=== PATIENT | female | born 1990 | race Caucasian/White ===

== ENCOUNTER 2018-10-24 09:22 | Emergency (ER) | payer SELFPAY ==
[2018-10-24 10:00] VITALS: BP 126/89
--- NOTE | 2018-10-24 10:15 | ER Report ---
History and Physical Time Seen By MD: 09:00 Hx. of Stated Complaint: cough, runny nose, fever HPI/ROS CHIEF COMPLAINT: Cough runny nose HISTORY OF PRESENT ILLNESS: 28-year-old female is child is diagnosed with influenza is concerned she also may have influenza scad a cough runny nose objective fevers general malaise no other additional complaints noted REVIEW OF SYSTEMS: Respiratory: Nonproductive cough no shortness of breath Cardiovascular: No chest pain, no palpitations. Gastrointestinal: No vomiting, no abdominal pain. Musculoskeletal: No back pain. Remainder of the 14 system rev: Yes Allergies: Coded Allergies: No Known Drug Allergies (Unverified , 10/24/18) Reviewed Nurses Notes: Yes Old Medical Records Reviewed: Yes Constitutional Vital Sign - Last 24 Hours 10/24/18 09:29 Temp 98.7 Pulse 78 Resp 20 B/P (MAP) 140/99 Pulse Ox 97 O2 Delivery Room Air Physical Exam General Appearance: The patient is alert, has no immediate need for airway protection and no current signs of toxicity. [ ] Eyes: Pupils equal and round no injection. Respiratory: Chest is non tender, lungs are clear to auscultation. Cardiac: regular rate and rhythm [ ] Gastrointestinal: Abdomen is soft and non tender, no masses, bowel sounds normal. Musculoskeletal: Neck: Neck is supple and non tender. Extremities have full range of motion and are non tender. Skin: No rashes or lesions. [ ] DIFFERENTIAL DIAGNOSIS: After history and physical exam differential diagnosis was considered for viral upper respiratory influenza Medical Decision Making Data Points Laboratory Hematology Test 10/24/18 09:29 Influenza Virus Type A (PCR) Negative (NEGATIVE) Influenza Virus Type B (PCR) Negative (NEGATIVE) Chemistry Test 10/24/18 09:29 Influenza Virus Type A (PCR) Negative (NEGATIVE) Influenza Virus Type B (PCR) Negative (NEGATIVE) ED Course/Re-evaluation ED Course 28-year-old otherwise healthy female comes in with vague nonspecific symptoms including a subjective fever nonproductive cough child has influenza she is negative diagnosis viral Decision to Disposition Date: Oct 24, 2018 Decision to Disposition Time: 10:14 Depart Departure Latest Vital Signs Vital Signs Date Time Temp Pulse Resp B/P (MAP) Pulse Ox O2 Delivery O2 Flow Rate FiO2 10/24/18 09:29 98.7 78 20 140/99 97 Room Air Impression: Primary Impression: Viral upper respiratory illness Condition: Stable Disposition: HOME OR SELF-CARE Referrals: CHRISTINA CH MD 5 Days Patient Instructions: Upper Respiratory Infection (DC) GERONIMO VÁZQUEZ MD Oct 24, 2018 10:15
== END 2018-10-24 10:23 | disposition home or self-care (01) ==
LOC: ER 09:47
DX: J06.9 Acute upper respiratory infection, unspecified (principal)
CPT/HCPCS: 87502; 99282

== ENCOUNTER 2019-04-22 23:54 | Observation (INO) | payer BC ==
[~2019-04-22] VITALS: Ht 154.9 cm; Wt 79.8 kg
[2019-04-23] VITALS (15 sets, daily range): BP systolic 107–140; BP diastolic 73–90
--- NOTE | 2019-04-23 00:13 | ER Report ---
History and Physical Time Seen By MD: 00:08 Hx. of Stated Complaint: PT REPORTS STABBING EPIGASTRIC PAIN THAT LASTED FOR 20 MINUTES AND RADIATED AROUND RIGHT SIDE TO SPINE. PT REPORTS DULL PAIN RIGHT NOW. VOMITING WITH THE PAIN. HPI/ROS CHIEF COMPLAINT: Abdominal pain HISTORY OF PRESENT ILLNESS: This is a 28-year-old female. She reports epigastric pain, sharp and stabbing, radiating around the right side into the back. Nausea and vomiting with the pain. Pain seeming to let up now. Happened a few hours after eating, had chicken and mashed potatoes. No pain right after eating. Has had similar pain in the past. Family history of gallbladder issues. No fevers or chills noted. No cough or shortness of breath, but when pain was severe would take her breath away. No problems with urination. Last menses normal a few weeks ago. No diarrhea, blood in stool or stool changes. Allergies: Coded Allergies: No Known Drug Allergies (Unverified , 04/23/19) Home Meds No Active Prescriptions or Reported Meds Reviewed Nurses Notes: Yes Constitutional Vital Sign - Last 24 Hours 04/23/19 04/23/19 04/23/19 04/23/19 00:01 00:06 00:30 00:39 Temp 98.6 Pulse 78 79 Resp 18 B/P (MAP) 148/101 (117) 148/101 142/107 (119) Pulse Ox 94 94 O2 Delivery Room Air 04/23/19 04/23/19 04/23/19 04/23/19 00:54 01:00 01:09 01:30 Pulse 83 B/P (MAP) 127/103 (111) 129/87 (101) Pulse Ox 94 95 04/23/19 04/23/19 04/23/19 04/23/19 01:39 01:54 01:56 01:59 Pulse 63 67 B/P (MAP) 134/84 (101) 129/89 (102) Pulse Ox 96 98 04/23/19 02:00 B/P (MAP) 143/93 (110) l Intake and Output 04/22/19 04/22/19 04/23/19 15:03 23:03 07:03 Intake Total 1000 ml Balance 1000 ml Physical Exam General Appearance: The patient is alert. Acute distress due to pain. Eyes: Pupils are equal, round. No pallor, injection or icterus. ENT: Mucous membranes are moist. Normal oral mucosa. Posterior oropharynx is normal. Neck: Supple and non tender. Respiratory: Lungs are clear to auscultation. Cardiovascular: Regular rate and rhythm. No murmurs, gallops or rubs. Normal capillary refill. Gastrointestinal: Abdomen is soft, tender in epigastric and ruq. Nondistended. Guarding, no rebound. Negative Blackburn's sign. No masses or organomegaly. Normal active bowel sounds. No costovertebral angle tenderness with percussion. Neurological: Alert and oriented x3. No focal neurologic deficit Skin: Warm and dry. No rashes. Musculoskeletal: Extremities are nontender. No tenderness in palpation of the back and spine. DIFFERENTIAL DIAGNOSIS: After history and physical exam, differential diagnosis was considered for epigastric pain including but not limited to biliary colic, cholecystitis, peptic ulcer disease, pancreatitis, and gastroenteritis. Medical Decision Making Data Points Result Diagram: 04/23/19 0114 04/23/19 0114 Laboratory Hematology Test 04/23/19 01:14 White Blood Count 10.9 k/uL (4.5-11.0) Red Blood Count 5.26 M/uL (4.17-5.56) Hemoglobin 16.0 g/dL (12.0-16.0) Hematocrit 46.0 % (34.0-47.0) Mean Corpuscular Volume 87.5 fL (80.0-96.0) Mean Corpuscular Hemoglobin 30.5 pg (26.0-33.0) Mean Corpuscular Hemoglobin Concent 34.9 g/dL (32.0-36.0) Red Cell Distribution Width 13.3 % (11.5-14.5) Platelet Count 235 K/uL (150-450) Mean Platelet Volume 8.7 fL (7.2-11.1) Neutrophils (%) (Auto) 68.5 % (39.4-72.5) Lymphocytes (%) (Auto) 23.1 % (17.6-49.6) Monocytes (%) (Auto) 5.1 % (4.1-12.4) Eosinophils (%) (Auto) 1.8 % (0.4-6.7) Basophils (%) (Auto) 1.5 % (0.3-1.4) H Nucleated RBC Relative Count (auto) 0.1 /100WBC Neutrophils # (Auto) 7.5 K/uL (2.0-7.4) H Lymphocytes # (Auto) 2.5 K/uL (1.3-3.6) Monocytes # (Auto) 0.6 K/uL (0.3-1.0) Eosinophils # (Auto) 0.2 K/uL (0.0-0.5) Basophils # (Auto) 0.2 K/uL (0.0-0.1) H Nucleated RBC Absolute Count (auto) 0.02 K/uL Chemistry Test 04/23/19 01:14 Sodium Level 140 mmol/L (137-145) Potassium Level 3.8 mmol/L (3.5-5.0) Chloride Level 105 mmol/L (98-107) Carbon Dioxide Level 26 mmol/L (22-31) Blood Urea Nitrogen 11 mg/dl (7-18) Creatinine 0.80 mg/dl (0.52-1.04) Glomerular Filtration Rate Calc > 60.0 Random Glucose 124 mg/dl (75-110) Lactate 1.4 mmol/L (0.7-2.1) Calcium Level 9.4 mg/dl (8.4-10.2) Total Bilirubin 0.3 mg/dl (0.2-1.3) Aspartate Amino Transf (AST/SGOT) 25 U/L (0-35) Alanine Aminotransferase (ALT/SGPT) 41 U/L (0-56) Alkaline Phosphatase 90 U/L (0-126) Total Protein 7.1 g/dl (6.3-8.2) Albumin 4.1 g/dl (3.5-5.0) Amylase Level 60 U/L (0-110) Lipase 109 U/L (23-300) Human Chorionic Gonadotropin, Qual Negative (NEGATIVE) Urinalysis Test 04/22/19 23:51 Urine Color Yellow Urine Clarity Cloudy Urine pH 6.0 pH (4.8-9.5) Urine Specific [place] 1.018 Urine Protein Negative mg/dL (NEGATIVE) Urine Glucose (UA) Negative mg/dL (NEGATIVE) Urine Ketones Negative mg/dL (NEGATIVE) Urine Blood Small (NEGATIVE) Urine Nitrite Negative (NEGATIVE) Urine Bilirubin Negative (NEGATIVE) Urine Urobilinogen 2.0 mg/dL (0.2-1.9) Urine Leukocyte Esterase Negative (NEGATIVE) Urine RBC 3 /HPF (0-2/HPF) Urine WBC 4 /HPF (0-5/HPF) Urine Squamous Epithelial Cells Many /LPF (</=FEW) Urine Amorphous Crystals Few /LPF Urine Bacteria Few /HPF (NONE-FEW) Urine Mucus Few /HPF (NONE-FEW) EKG/Imaging Imaging COMPUTED TOMOGRAPHY ABDOMEN AND PELVIS WITH INTRAVENOUS CONTRAST DATE OF EXAM: 04/23/2019 12:40 AM INDICATION: Right upper quadrant and epigastric pain. Nausea/vomiting. History of renal stones. COMPARISON: None. TECHNIQUE: Contrast enhanced abdomen and pelvis CT performed during the injection of 75 ml of Isovue 370. Sagittal and coronal reconstructions were performed. One of the following dose optimization techniques was utilized in the performance of this exam: Automated exposure control; adjustment of the mA and/or kV according to the patient's size; or use of an iterative reconstruction technique. Specific details can be referenced in the facility's radiology CT exam operational policy. FINDINGS: Lung bases: Minimal atelectasis. Liver and hepatic vasculature: Prominent right lobe of the liver may represent Blair's lobe variant. No suspicious lesion. Gallbladder and bile ducts: The gallbladder is filled with numerous calculi. No apparent pericholecystic inflammation. Bile ducts are unremarkable. Spleen: Normal. Pancreas: Normal. Adrenals: Normal. Kidneys, ureters and bladder: 9 mm cyst in the mid to upper right kidney. Probable subcentimeter cyst in the inferior pole of the left kidney. No acute abnormality or suspicious lesion. Retroperitoneum and aorta: Normal. GI tract, mesentery and peritoneum: Nonacute. Normal appendix. Uterus and adnexa: Normal. Bones and soft tissues: No acute abnormality or suspicious lesion. IMPRESSION: Stone filled gallbladder with no definite evidence of cholecystitis. Report Dictated By: Saran Beltran MD at 04/23/2019 2:01 AM ED Course/Re-evaluation Clinical Indication for ER IV: Hydration, IV Access ED Course Labs unremarkable. Still having mild pain. Nausea is improving. CT scan and ultrasound bolus show gallstones, no sign of cholecystitis at this time based on labs and imaging. Discussed with our general surgeon, Dr. Leon, who will admit. Unasyn, NPO, Huynh and nausea meds, IV fluids ordered. Decision to Disposition Date: Apr 23, 2019 Decision to Disposition Time: 02:47 Depart Departure Latest Vital Signs Vital Signs Date Time Temp Pulse Resp B/P (MAP) Pulse Ox O2 Delivery O2 Flow Rate FiO2 04/23/19 02:00 143/93 (110) 04/23/19 01:59 67 98 04/23/19 00:06 98.6 18 Room Air Impression: Primary Impression: Cholelithiasis Additional Impression: Biliary colic Condition: Condition Unchanged Disposition: Admitted from ER New Scripts No Active Prescriptions or Reported Meds Problem Qualifiers Primary Impression: Cholelithiasis Cholelithiasis location: gallbladder Cholecystitis presence: without cholecystitis Biliary obstruction: without biliary obstruction Qualified Codes: K80.20 - Calculus of gallbladder without cholecystitis without obstruction VALARIE ULRICH MD Apr 23, 2019 00:13
[2019-04-23] MEDS ORDERED: NS(*) 0.9% 1000 ML BAG 1,000 ML IV ONE (00:40)
[2019-04-23] MEDS ORDERED: ONDANSETRON 4 MG/2 ML VIAL IVP ONE (00:40)
[2019-04-23] MEDS ORDERED: PANTOPRAZOLE SOD 40 MG IV VIAL IVP ONE (00:45)
[2019-04-23] MEDS ORDERED: IOPAMIDOL 76% 100 ML INFUS BTL 100 ML ONE (00:59)
[2019-04-23 01:31] LABS: PLATELET COUNT, AUTOMATED 235 K/uL (150-450)
--- NOTE | 2019-04-23 02:17 | RADIOLOGY IMAGING REPORT ---
FACILITY: [facility] [place] PATIENT NAME: Audelia Rene : 1990 MR: [id number] V: [id number] EXAM DATE: ORDERING PHYSICIAN: VALARIE ULRICH TECHNOLOGIST: Location: [facility] Patient: Audelia Rene : 1990 Visit/Account:[id number] Date of Sevice: 04/23/2019 COMPUTED TOMOGRAPHY ABDOMEN AND PELVIS WITH INTRAVENOUS CONTRAST DATE OF EXAM: 04/23/2019 12:40 AM INDICATION: Right upper quadrant and epigastric pain. Nausea/vomiting. History of renal stones. COMPARISON: None. TECHNIQUE: Contrast enhanced abdomen and pelvis CT performed during the injection of 75 ml of Isovue 370. Sagittal and coronal reconstructions were performed. One of the following dose optimization te chniques was utilized in the performance of this exam: Automated exposure control; adjustment of the mA and/or kV according to the patient's size; or use of an iterative reconstruction technique. Spec [facility] details can be referenced in the facility's radiology CT exam operational policy. FINDINGS: Lung bases: Minimal atelectasis. Liver and hepatic vasculature: Prominent right lobe of the liver may represent Blair's lobe variant . No suspicious lesion. Gallbladder and bile ducts: The gallbladder is filled with numerous calculi. No apparent pericholec ystic inflammation. Bile ducts are unremarkable. Spleen: Normal. Pancreas: Normal. Adrenals: Normal. Kidneys, ureters and bladder: 9 mm cyst in the mid to upper right kidney. Probable subcentimeter cy st in the inferior pole of the left kidney. No acute abnormality or suspicious lesion. Retroperitoneum and aorta: Normal. GI tract, mesentery and peritoneum: Nonacute. Normal appendix. Uterus and adnexa: Normal. Bones and soft tissues: No acute abnormality or suspicious lesion. IMPRESSION: Stone filled gallbladder with no definite evidence of cholecystitis. Report Dictated By: Saran Beltran MD at 04/23/2019 2:01 AM Report E-Signed By: Saran Beltran MD at 04/23/2019 2:09 AM WSN:[id number]
--- NOTE | 2019-04-23 02:53 | RADIOLOGY IMAGING REPORT ---
FACILITY: [facility] PATIENT NAME: Audelia Rene : 1990 MR: [id number] V: [id number] EXAM DATE: ORDERING PHYSICIAN: VALARIE ULRICH TECHNOLOGIST: Location: [facility] Patient: Audelia Rene : 1990 Visit/Account:[id number] Date of Sevice: 04/23/2019 EXAMINATION: LIMITED ABDOMINAL ULTRASOUND DATE: 04/23/2019 12:40 AM INDICATION: epigastric and right upper quadrant abdominal pain TECHNIQUE: Yancey scale, color and pulsed Doppler ultrasound images of the right upper quadrant were ob tained. COMPARISON: Same-day CT. FINDINGS: Pancreas: The pancreas is suboptimally visualized in the tail. There is no significant abnormality in the visualized portion. Aorta and IVC: The imaged abdominal aorta and IVC are patent. Liver: The liver shows normal shape, parenchymal echogenicity and echotexture. The right hepatic lobe measures 16 cm craniocaudal, which is within normal limits. There is no definite focal lesion in the liver. The main portal vein is patent with hepatopedal flow. Bile ducts: The intrahepatic bile ducts are not dilated. The common bile duct measures 3 mm in diamet er, which is normal. Gallbladder: The gall bladder is filled with posteriorly shadowing calculi, corresponding to CT. No apparent gallbladder wall thickening or pericholecystic fluid, though sonographic Blackburn's sign is re portedly positive. Kidney: The right kidney measures 10.4 x 4.4 x 5.0 cm. The parenchymal echogenicity and thickness jose roberto ear within normal range. No focal lesion is demonstrated, including a probable cyst seen on CT. No hy dronephrosis. No ascites. IMPRESSION: Stone filled gallbladder as seen on CT. Although sonographic Blackburn's sign is reportedly positive, there is no pericholecystic fluid or apparent wall thickening. Any suspicion of cholecyst itis will require clinical correlation. Report Dictated By: Saran Beltran MD at 04/23/2019 2:41 AM Report E-Signed By: Saran Beltran MD at 04/23/2019 2:44 AM WSN:[id number]
[2019-04-23] MEDS ORDERED: AMPICILLIN/SULBACT (*) 3 GM VL 3 GM in NS(*) 0.9% 100 ML MINI-BAG 100 ML IVPB ONE (04:05)
[2019-04-23] MEDS ORDERED: ONDANSETRON 4 MG/2 ML VIAL IVP PRN (04:05)
[2019-04-23] MEDS ORDERED: NS(*) 0.9% 1000 ML BAG 1,000 ML IV PRN ×3 (04:05→17:38)
[2019-04-23] MEDS ORDERED: MORPHINE 2 MG/ML SYR IVP PRN (04:05)
[2019-04-23] MEDS ORDERED: FLUSH 10 ML SYR IVP PRN (08:15)
[2019-04-23] MEDS ORDERED: HYDROmorphone HCL 2 MG/ML SDV IVP PRN (08:15)
--- NOTE | 2019-04-23 08:34 | Gen Surgery History & Physical ---
History of Present Illness Chief Complaint Right upper quadrant and epigastric abdominal pain History of Present Illness 28-year-old female reports that she has had right upper quadrant and epigastric abdominal pain that started last night. She also had an episode that lasted several hours 4 days ago. In hindsight, she's had similar episodes over the last 12 years but then she went several years without any episodes. Prior to 4 days ago, her last episode was over 2 years ago. This episode was more severe prompting her to come into the emergency room where a CT scan and right upper quadrant ultrasound has revealed that her gallbladder is full of stones. No obvious evidence of inflammation on imaging but her right upper quadrant pain has persisted. She's had 3 C-sections but no other abdominal surgeries. She's had nausea but no vomiting. No constipation or diarrhea. No other complaints today. History Home Meds No Active Prescriptions or Reported Meds Allergies: Coded Allergies: No Known Drug Allergies (Unverified , 04/23/19) Review of Systems All Systems Reviewed/Normal: Yes, Except as Noted Gastrointestinal: Nausea, Abdominal Pain Exam General Appearance: Alert, Awake, No Acute Distress, Afebrile Neuro: No Gross deficits Eyes: PERRLA GI: Other (soft, epigastric and right upper quadrant tenderness to palpation with positive Blackburn sign) Extremities: Warm, Perfused Psych: Alert & Oriented X3, Appropriate Mood & Affect Medical Decision Making Data Points Result Diagram: 04/23/19 0114 04/23/19 0114 Assessment and Plan Problems: (1) Cholecystitis Status: Acute Assessment & Plan: 04/23/19: Will admit patient and start IV antibiotics for presumed cholecystitis based on physical examination. We will add her onto surgery this afternoon for cholecystectomy. I have explained gallstones and cholecystitis with the patient in detail as well as laparoscopic cholecystectomy. I have explained the alternatives, risks, and expected recovery. I have emphasized the risks of common bile duct injury, bile leak from the cystic duct or common bile duct or from the gallbladder bed, injury to surrounding structures such as the colon, duodenum, etc. She indicates her understanding of this discussion and her questions have been answered. She would like to proceed with this plan including laparoscopic cholecystectomy. Condition Stable Time Spent: < 30 min Venous Thromboembolism VTE Risk Physician Assess for VTE Risk: Yes Patient's VTE Risk: Low VTE Diagnostic Test 2 Days Prior to Admit: No Antithrombotics Is Pt On Any Antithrombotics?: No FESTUS STORY MD Apr 23, 2019 08:33
[2019-04-23] MEDS ORDERED: PANTOPRAZOLE SOD 40 MG IV VIAL IVP SCH (09:00)
--- NOTE | 2019-04-23 10:16 | NUR ---
Pt off unit and outside smoking
[2019-04-23] MEDS: PIPERACILLIN/TAZO*3.375GM VIAL 3.375 GM in NS(*) 0.9% 100 ML MINI-BAG 100 ML IVPB SCH ×3 (10:24→21:30)
[2019-04-23] MEDS ORDERED: IOPAMIDOL 76% 50 ML INFUS BTL 50 ML ONE (15:44)
[2019-04-23] MEDS ORDERED: ROPIVACAINE 0.5% 20 ML VIAL ONE (15:44)
[2019-04-23] MEDS ORDERED: PROPOFOL EMUL(*) 10MG/ML 20 ML 20 ML ONE (15:56)
[2019-04-23] MEDS ORDERED: fentaNYL CITR 100 MCG/2 ML AMP ONE ×2 (15:56→17:42)
[2019-04-23] MEDS ORDERED: ONDANSETRON 4 MG/2 ML VIAL ONE (15:56)
[2019-04-23] MEDS ORDERED: DEXAMETHASONE SOD PHOS 10MG/ML ONE (15:56)
[2019-04-23] MEDS ORDERED: LIDOCAINE 2% IV 100 MG/5ML SYR ONE (15:56)
[2019-04-23] MEDS ORDERED: ROCURONIUM BR 10 MG/ML 5 ML SY 5 ML ONE (15:56)
[2019-04-23] MEDS ORDERED: NORMOSOL R SOLN(*) 1000 ML BAG 1,000 ML IV ONE (16:00)
[2019-04-23] MEDS ORDERED: SUGAMMADEX SOD 200 MG/2 ML SDV ONE (17:07)
[2019-04-23] MEDS ORDERED: ACETAMINOPHEN 325 MG TAB PO PRN (17:40)
--- NOTE | 2019-04-23 17:53 | Post Operative Progress Note ---
Post Operative Progress Note Date: Apr 23, 2019 Time: 17:40 Surgeon: Jose Dictation number: [id number] Anesthesia: GETA by Dr. Farris Pre-Op Diagnosis: Acute cholecystitis Post-Op Diagnosis: Acute on chronic cholecystitis Findings: Chronically inflamed gallbladder full of gallstones Procedure(s): Lap lacey with gram Specimen Removed:(May be N/A): GB and contents Complications: None Fluids: See anesthesia record Estimated Blood Loss: Minimal Date OP Note Dictated: Apr 23, 2019 Time OP Note Dictated: 17:41 FESTUS STORY MD Apr 23, 2019 17:53
--- NOTE | 2019-04-23 19:59 | OPERATIVE REPORT 1 ---
EVENT DATE: April 23, 2019 SURGEON: Juan Garcia MD ANESTHESIOLOGIST: Juan Pablo Farris MD ANESTHESIA: General endotracheal anesthesia. PREOPERATIVE DIAGNOSIS Acute cholecystitis. POSTOPERATIVE DIAGNOSIS [id number] cholecystitis. PROCEDURE PERFORMED Laparoscopic cholecystectomy with intraoperative cholangiogram. COMPLICATIONS None. CONDITION Stable. BLOOD LOSS Minimal. INDICATIONS This is a 28-year-old female who has had right upper quadrant and epigastric abdominal pain for the last 12 years with increasing frequency, who came into the Emergency Room this morning with an episode, and she was found to have a gallbladder full of gallstones on ultrasound and CT. She was in persistent right upper quadrant abdominal pain, so she was admitted and consented for cholecystectomy. DESCRIPTION OF PROCEDURE The patient was brought to the operating room and placed supine on the operating table. General endotracheal anesthesia was administered, and her abdomen was prepped and draped in a sterile fashion. Timeout was completed. I injected the infraumbilical skin with 0.5% ropivacaine plain. I made a curvilinear smiley face incision in the infraumbilical rim and dissected through the dermis and subcutaneous fat. I identified the midline fascia, made a vertical incision in the midline fascia, grasped the fascial edges with Hallie clamps, and then entered the peritoneal cavity with my finger. I placed interrupted 0 Vicryl sutures transversely through the vertical fascia defect and then inserted a 12 mm Selma-type port through this wound and secured it into place with the sutures. I insufflated the abdomen to a pressure of 15 mmHg and inserted a 5 mm, 30-degree lens scope through this port. Next, under direct visualization, I placed a 5 mm port in the epigastric midline and two 5 mm ports in the right upper quadrant. The patient was then placed in reverse Trendelenburg and planed towards her left to move the viscera from right upper quadrant, and then the gallbladder was identified and grasped with the wavy atraumatic grasper and retracted it towards the patient's right shoulder. There were adhesions of omentum to most of the gallbladder, and these were taken down with traction/countertraction using hook electrocautery. Got down to the infundibulum, and this was caked with omentum as well. It took a while to dissect through this and identify the infundibulum as well as eventually the cystic duct and artery. The artery was fairly easily identified because it was more readily visible, and I cleaned this off circumferentially, clipped it with two clips on the side that remained in and one clip on the side that was coming out the gallbladder and then divided the artery between the clips. I then sequentially cleaned off the infundibular-cystic duct junction, which took quite some time because of the dense adhesions to this area. Ultimately as I cleaned it off, I was able to visually identify the hepatic and common bile ducts as the cystic duct was very short. Ultimately, I was able to clean off the short cystic duct, and I clipped the infundibular-cystic junction, made a ductotomy adjacent to the clip, and shot a cholangiogram. This confirmed that the cystic duct was very short, and I could clearly see where the common bile duct system was. It looked somewhat dilated, but there were no stones in the duct, and I observed contrast flowing into the duodenum without any filling defects or resistance. I also observed the common hepatic duct and intrahepatic biliary system. I then terminated the cholangiogram at this time and then clipped the duct just distal to the ductotomy with three clips, but being sure not to occlude the common duct system or stenose it. I then divided the cystic duct between the clips and then divided the posterior attachment of the gallbladder, it from the gallbladder fossa, and then placed the gallbladder in a surgical specimen retrieval bag and removed it from the abdomen through the umbilical port site. I then irrigated and dried the right upper quadrant. I inspected the gallbladder fossa as well as cystic duct and artery stumps, and there was no bleeding or bile leak whatsoever. I inspected especially the clips on the cystic duct to make sure they were not occluding or narrowing the common duct system, and they were not. I suctioned out all my irrigation fluid from the gallbladder fossa as well as up over the liver and in Guerra pouch. I then removed all instruments, removed the 5 mm ports, desufflated the abdomen, removed the umbilical port, and then after all of the carbon dioxide was evacuated, closed the midline fascia at the umbilicus with a running 0 Vicryl suture. I then tied all three of these down with good reapproximation of the fascial edges and no remaining fascial defect. I then closed the skin at each port site with a 4-0 Monocryl running subcuticular suture. Skin was cleaned and dried, and Steri-Strips were applied, followed by sterile surgical dressings. The patient was awakened, extubated in the operating room, and transported to the recovery room in stable condition having tolerated the procedure without any apparent problems. MENA
--- NOTE | 2019-04-23 20:46 | RADIOLOGY IMAGING REPORT ---
FACILITY: [facility] - [place] PATIENT NAME: Audelia Rene : 1990 MR: [id number] V: [id number] EXAM DATE: ORDERING PHYSICIAN: FESTUS STORY TECHNOLOGIST: Location: [facility] Patient: Aduelia Rene : 1990 Visit/Account:[id number] Date of Sevice: 04/23/2019 INTRAOPERATIVE CHOLANGIOGRAM Comparison: Ultrasound CT same day. History: Cholecystectomy. Cholecystitis. Findings: Total fluoroscopy time is 8.3 seconds. 1 image is acquired. Cholecystectomy with cannulation of the cystic duct. There is contrast opacification of the common bi le duct and the visualized central intrahepatic ducts. No filling defect is identified. Contrast flow s into the small bowel. The pancreatic duct does not opacify. IMPRESSION: Intraoperative cholangiogram as described above. Report Dictated By: Roberto Huntley MD at 04/23/2019 8:37 PM Report E-Signed By: Roberto Huntley MD at 04/23/2019 8:39 PM WSN:[id number]
[2019-04-23] MEDS: DOCUSATE SODIUM 100 MG CAP PO SCH (20:57)
[2019-04-23] MEDS: traMADol 50 MG TAB PO PRN (20:57)
[2019-04-24] VITALS: BP 107/77
[2019-04-24 01:00] VITALS: BP 115/75
[2019-04-24 02:00] VITALS: BP 104/72
[2019-04-24 02:58] VITALS: BP 120/76
[2019-04-24] MEDS: PIPERACILLIN/TAZO*3.375GM VIAL 3.375 GM in NS(*) 0.9% 100 ML MINI-BAG 100 ML IVPB SCH (04:19)
[2019-04-24] MEDS: traMADol 50 MG TAB PO PRN (05:06)
[2019-04-24] MEDS ORDERED: TRAM-420 PO (06:54)
[2019-04-24] MEDS ORDERED: DOCU-202 PO (06:54)
--- NOTE | 2019-04-24 06:59 | Short(Outpt) Discharge Summary ---
Discharge Summary Reason for Hosp/Final Diag: (1) Cholecystitis Status: Acute Hospital Course & Plan: 04/23/19: Will admit patient and start IV antibiotics for presumed cholecystitis based on physical examination. We will add her onto surgery this afternoon for cholecystectomy. I have explained gallstones and cholecystitis with the patient in detail as well as laparoscopic cholecystectomy. I have explained the alternatives, risks, and expected recovery. I have emphasized the risks of common bile duct injury, bile leak from the cystic duct or common bile duct or from the gallbladder bed, injury to surrounding structures such as the colon, duodenum, etc. She indicates her understanding of this discussion and her questions have been answered. She would like to proceed with this plan including laparoscopic cholecystectomy. 04/24/19: POD#1 s/p lap lacey. No events overnight. Doing well. D/C to home this morning. Departure Discharge to: Home, Self Care Discharge Instructions Home Meds Active Scripts Tramadol Hcl (TRAMADOL HCL) 50 Mg Tablet, 1 TAB PO Q4H PRN for PAIN, #20 TAB 0 Refills Prov:FESTUS STORY MD 04/24/19 Docusate Sodium (DOCUSATE SODIUM) 100 Mg Capsule, 1 CAP PO BID, #30 CAPSULE 0 Refills Prov:FESTUS STORY MD 04/24/19 Follow up Referrals: General Surgery - 05/17/19 @ Surgery, General with FESTUS STORY MD You have a follow up appointment scheduled with Dr. Story on 05/17/19, at 9:30am. Diet: Regular Activity: As Tolerated Special Instructions: You may remove the white surgical dressings on , 04/25/19, then you can shower. After showering, leave the incisions open to air but leave the steristrips in place until they fall off on their own. Do not immerse the incisions for 2 weeks. Surgery and anesthesia can decrease the effectiveness of any control method other then permanent surgical control such as tubal ligation or hysterectomy so unless you've had a tubal ligation or hysterectomy, you should use another form of additional control for 30 days after surgery. FESTUS STORY MD Apr 24, 2019 06:59
--- NOTE | 2019-04-24 07:02 | Antimicrobial Stewardship ---
Antimicrobial Time Out Antimicrobial Stewardship MD Service: Other (Surgeon) Indications: Other (post-op lap choley) Antimicrobial Used Unasyn pre-op and Zosyn post-op Culture Results: N/A Comments Comments length of treatment individualized RAAD ZARAGOZA Apr 24, 2019 07:02
[2019-04-24 07:08] VITALS: BP 132/86
[2019-04-24] MEDS: DOCUSATE SODIUM 100 MG CAP PO SCH (08:19)
== END 2019-04-24 06:53 | disposition home or self-care (01) ==
LOC: ER 04-23 00:29 → MED 04-23 03:27 → INTOOBSV 04-23 03:27
PROVIDERS: ADMIT Surgery; ATTEND Surgery
DX: K80.20 Calculus of gallbladder without cholecystitis without obstruction (principal)
CPT/HCPCS: 47563; 74177; 74300; 76705; 81001; 82150; 83605; 83690; 84703; 85025; 88304; 96361; 96374; 96375; 99284; C9113; G0378; J0295; J1100; J2001; J2405; J2543; J2704; J2795; J3010; J7030; Q9967; 82040; 82247; 82310; 82374; 82435; 82565; 82947; 84075; 84132; 84155; 84295; 84450; 84460; 84520